=== PATIENT | female | born 1980 | race American Indian/Alaskan Native ===

== ENCOUNTER 2016-06-14 16:36 | Emergency (ER) | payer SELFPAY ==
[2016-06-14 17:13] VITALS: BP 126/85
--- NOTE | 2016-06-14 17:32 | Emergency Department Report ---
Chief Complaint: Abdominal Pain Stated Complaint: ABD PAIN/NAUSEA/WEAKNESS Time Seen by Provider: 06/14/16 17:28 - HPI History of Present Illness: 35-year-old -Polish female comes in complaint of medical abdominal pain 1 week. Denies any discharge or bleeding denies any dysuria. General weakness times one week denies any chest pain and vomiting. SHe has no past medical history takes no medications on a daily basis - Exam Vital Signs: Vital Signs 06/14/16 17:09 Temperature 98.5 F Pulse Rate 76 Respiratory 20 Rate Blood Pressure 126/85 O2 Sat by Pulse 100 Oximetry Physical Exam: Patient is alert and oriented 3 cardiovascular S1-S2 regular rate and rhythm respiratory clear to auscultation bilaterally abdomen soft nontender nondistended bowel sounds throughout. MSE screening note: Focused history and physical exam performed. Due to findings the following was ordered: Patient has been evaluated by this provider and MSE. Dominant protocol ordered patient be evaluated the main ER ED Disposition for MSE Condition: Stable Instructions: Abdominal Pain (ED)
[2016-06-14 19:13] LABS: Basophils % (Auto) 0.5 % (0.0-1.8); Eosinophils % (Auto) 2.9 % (0.0-4.3); Hematocrit 41.1 % (30.3-42.9); Hemoglobin 13.2 gm/dl (10.1-14.3); Mean Corpuscular HGB Conc 32 % (30-34); Mean Corpuscular Hemoglobin 27 pg (28-32); Mean Corpuscular Volume 83 fl (79-97); Platelet Count 329 K/mm3 (140-440); Red Blood Count 4.97 M/mm3 (3.65-5.03); Red Cell Distribution Width 14.4 % (13.2-15.2); White Blood Count 6.6 K/mm3 (4.5-11.0)
[2016-06-14 19:31] LABS: Alanine Aminotransferase 14 units/L (7-56); Albumin 4.1 g/dL (3.9-5); Albumin/Globulin Ratio 1.2 %; Alkaline Phosphatase 118 units/L (35-129); Anion Gap 13 mmol/L; Bilirubin,Total 0.2 mg/dL (0.1-1.2); Blood Urea Nitrogen 6 mg/dL (7-17); Calcium 8.9 mg/dL (8.4-10.2); Carbon Dioxide 26 mmol/L (22-30); Chloride 104.3 mmol/L (98-107); Glucose 103 mg/dL (65-100); Lipase 23 units/L (13-60); Potassium 4.4 mmol/L (3.6-5.0); Sodium 139 mmol/L (137-145); Total Protein 7.6 g/dL (6.3-8.2)
[2016-06-14 20:37] LABS: Bacteria,Urine 1+ /HPF (Negative); Bilirubin,Urine NEG (Negative); Blood,Urine NEG (Negative); Ketones,Urine NEG (Negative); Leukocyte Esterase,Urine SM (Negative); Mucus,Urine FEW /HPF; Nitrite,Urine NEG (Negative); Protein,Urine <15 mg/dL mg/dL (Negative); Urobilinogen,Urine < 2.0 mg/dL (<2.0)
[2016-06-14] MEDS ORDERED: TYLENOL PO ONE (21:11)
[2016-06-14] MEDS ORDERED: ZOFRAN ODT PO ONE (21:11)
[2016-06-14] MEDS ORDERED: BENTYL PO ONE (21:11)
--- NOTE | 2016-06-14 21:30 | Emergency Department Report ---
HPI - General Chief Complaint: Abdominal Pain Time Seen by Provider: 06/14/16 17:28 - HPI HPI: The patient is a 35-year-old female presents for evaluation of abdominal pain. The patient reports onset of abdominal pain for the past one week, periumbilical in location, 8/10 in severity, crampy in quality, improved with defecation, associated with nausea, multiple episodes of nonbilious, nonbloody emesis, and constipation. The patient denies fever, chills, night sweats, blood in the stool, dark tarry stool, dysuria, hematuria, flank pain, genital discharge, vaginal bleeding, inability to pass flatus. ED Past Medical Hx - Past Medical History Previous Medical History?: No - Surgical History Past Surgical History?: No - Social History Smoking Status: Never Smoker Substance Use Type: Alcohol - Medications Home Medications: Home Medications Medication Instructions Recorded Confirmed Last Taken Type Cyclobenzaprine HCl [Flexeril 5 MG 5 mg PO Q8HR PRN #15 tab 06/14/16 Unknown Rx TAB] Ondansetron [Zofran TAB] 4 mg PO Q8HR PRN #15 tablet 06/14/16 Unknown Rx ED Review of Systems ROS: Stated complaint: ABD PAIN/NAUSEA/WEAKNESS Other details as noted in HPI Constitutional: denies: fever ENT: denies: throat or neck pain Respiratory: denies: cough, shortness of breath Cardiovascular: denies: chest pain Endocrine: denies unexplained weight loss or gain Gastrointestinal: reports abdominal pain, nausea Genitourinary: denies: dysuria Musculoskeletal: denies: leg swelling Skin: denies: rash Neurological: denies: headache Hematological/Lymphatic: denies: easy bleeding or easy bruising Psych: denies sadness or hopelessness Physical Exam - Physical Exam Vital Signs: Vital Signs 06/14/16 17:09 Temperature 98.5 F Pulse Rate 76 Respiratory 20 Rate Blood Pressure 126/85 O2 Sat by Pulse 100 Oximetry Physical Exam: General: well-nourished, well-developed, no acute distress Head: Normocephalic, atraumatic Eyes: normal sclera ENT: Mucous membranes are pink and moist Neck: trachea midline, neck supple, No neck stiffness, no cervical adenopathy Respiratory: Breath sounds equal bilaterally, no wheezing, rales, or rhonchi Cardio: S1 and S2 present, no murmurs, rubs, gallops, capillary refill is brisk Abdomen: Normoactive bowel sounds, soft abdomen, periumbilical tenderness to palpation present, no rigidity, no guarding or rebound tenderness Chest WALL/Back: No tenderness to palpation of the chest wall, no CVA tenderness with percussion Musc: No pitting edema Skin: No rash Neuro: no facial drooping, normal speech Psych: Normal affect ED Course Vital Signs 06/14/16 17:09 Temperature 98.5 F Pulse Rate 76 Respiratory 20 Rate Blood Pressure 126/85 O2 Sat by Pulse 100 Oximetry ED Medical Decision Making - Lab Data Result diagrams: 06/14/16 19:03 06/14/16 19:03 - Medical Decision Making The patient was seen and examined by myself. The patient is placed on a child monitor and continuous pulse ox. On initial evaluation, the patient was found to be in no distress. Evaluation orders are placed. The patient given a tablet of Bentyl and Tylenol for pain, and Zofran for nausea. Lab results were non-concerning including WBC, hemoglobin, hematocrit, electrolytes, renal function, LFTs, lipase, urinalysis, and negative test. The patient was reevaluated and reported that their symptoms were markedly improved. The patient is stable for discharge with outpatient follow-up. The patient is given follow-up and return instructions. The patient expressed understanding and agreed with the plan. The patient is discharged in stable condition. Critical care attestation.: If time is entered above; I have spent that time in minutes in the direct care of this critically ill patient, excluding procedure time. ED Disposition Clinical Impression: Abdominal pain, acute, periumbilical, Nausea and vomiting in adult patient Disposition: DISCHARGED TO HOME OR SELFCARE Is pt being admited?: No Does the pt Need Aspirin: No Condition: Stable Instructions: Abdominal Pain (ED), Gastroenteritis (ED) Prescriptions: Cyclobenzaprine HCl [Flexeril 5 MG TAB] 5 mg PO Q8HR PRN #15 tab PRN Reason: Pain Ondansetron [Zofran TAB] 4 mg PO Q8HR PRN #15 tablet PRN Reason: Nausea Referrals: [facility] [Outside] - 3-5 Days Time of Disposition: 21:15
== END 2016-06-14 21:45 | disposition home or self-care (01) ==
LOC: ED 16:36
DX: R10.33 Periumbilical pain (principal); R11.2 Nausea with vomiting, unspecified; K59.00 Constipation, unspecified
CPT/HCPCS: 36415; 80053; 81001; 81025; 83690; 85025; 99284; Q0162

== ENCOUNTER 2016-06-23 13:12 | Emergency (ER) | payer SELFPAY ==
[2016-06-23 14:03] VITALS: BP 129/89
--- NOTE | 2016-06-23 16:47 | Emergency Department Report ---
Entered by MARIE SUAREZ, acting as scribe for ZACKARY WALTERS PA. - General Chief Complaint: Upper Respiratory Infection Stated Complaint: COUGH/EYE INFECTION Time Seen by Provider: 06/23/16 16:20 Source: patient Mode of arrival: Ambulatory Limitations: No Limitations - History of Present Illness Initial Comments: 35 y/o female with no significant PMHx, presents to the ED c/o cough beginning 1 week ago. The patient notes that she has seasonal allergies. Associated symptoms of chills, bilateral eye matting and tearing, throat itching, and headache, but she denies wheezing, SOB, chest pain, nausea, vomiting, abdominal pain, fever, weakness, and numbness. The patient has been taking OTC amrita- seltzer with no alleviation of the symptoms. MD Complaint: cough, other (itchy throat, bilateral eye matting and tearing) -: week(s) (1 week ago) Consistency: constant Improves With: nothing, other (no alleviation with OTC cold medicine) Worsens With: nothing Context: other (patient has seasonal allergies) Associated Symptoms: chills, headache, cough, other (itchy throat, bilateral eye matting and tearing). denies: fever, chest pain, shortness of breath, abdominal pain, nausea, vomiting, diarrhea Treatments Prior to Arrival: "cold medicine" (amrita-seltzer) - Related Data Previous Rx's Medication Instructions Recorded Last Taken Type Cyclobenzaprine HCl [Flexeril 5 MG 5 mg PO Q8HR PRN #15 tab 06/14/16 Unknown Rx TAB] Ondansetron [Zofran TAB] 4 mg PO Q8HR PRN #15 tablet 06/14/16 Unknown Rx Fluticasone [Flonase] 1 spray NS QDAY #1 bottle 06/23/16 Unknown Rx Ketotifen Fumarate [Alaway] 1 drop OP BID #1 bottle 06/23/16 Unknown Rx Loratadine/Pseudoephedrine 1 tab PO DAILY #30 tablet 06/23/16 Unknown Rx [Claritin-D 24Hr] Allergies Allergy/AdvReac Type Severity Reaction Status Date / Time No Known Allergies Allergy Unverified 06/14/16 17:13 ED Review of Systems Comment: All other systems reviewed and negative Constitutional: chills. denies: fever Eyes: other (eye matting and tearing) ENT: other (throat itching) Respiratory: cough. denies: shortness of breath, wheezing Cardiovascular: denies: chest pain Gastrointestinal: denies: abdominal pain, nausea, vomiting, diarrhea Skin: denies: rash Neurological: headache. denies: weakness, numbness ED Past Medical Hx - Past Medical History Previous Medical History?: No - Surgical History Past Surgical History?: No - Social History Smoking Status: Never Smoker Substance Use Type: None - Medications Home Medications: Home Medications Medication Instructions Recorded Confirmed Last Taken Type Cyclobenzaprine HCl [Flexeril 5 MG 5 mg PO Q8HR PRN #15 tab 06/14/16 Unknown Rx TAB] Ondansetron [Zofran TAB] 4 mg PO Q8HR PRN #15 tablet 06/14/16 Unknown Rx Fluticasone [Flonase] 1 spray NS QDAY #1 bottle 06/23/16 Unknown Rx Ketotifen Fumarate [Alaway] 1 drop OP BID #1 bottle 06/23/16 Unknown Rx Loratadine/Pseudoephedrine 1 tab PO DAILY #30 tablet 06/23/16 Unknown Rx [Claritin-D 24Hr] ED Physical Exam - General Limitations: No Limitations - Other Other exam information: GENERAL: Patient is alert and oriented x 3. No apparent distress, normal gait, atraumatic. HEAD: Head is normocephalic and atraumatic. Frontal sinus tenderness to percussion, no maxillary sinus tenderness. EYES: Extraocular movements are intact. Pupils are equal, round, and reactive to light and accommodation. EARS: Symmetrical, atraumatic, non tender, ear canal clear with moderate cerumen , tympanic membrane non inflamed. Gross auditory nml bilaterally. NOSE: Nose symmetrical, nontender. Nares appeared normal. MOUTH:Mouth is well hydrated and without lesions. Mucous membranes are moist. Uvula midline with mild swelling. Tongue not elevated. Posterior pharynx is mildly erythematous, no exudate or lesions. Tonsils are not erythematous or swollen. Patent airway. NECK: Supple. Non edematous, no carotid bruits. No lymphadenopathy or thyromegaly. LUNGS: Symmetrical with respiration. No wheezing, rales or crackles, CTAB. HEART: Regular rate and rhythm with normal S1/S2 present. No murmurs, rubs, or gallops. ABDOMEN: Soft, nondistended. Nontender to palpation on all quadrants. No organomegaly was noted. Positive bowel sounds. No CVA tenderness. EXTREMITIES/MUSCULOSKELETAL: No cyanosis, clubbing, rash, lesions or edema. Full ROM bilaterally. UE/LE Pulses 2+ bilaterally. LE and UE 5+ strength bilaterally SKIN: Warm and dry. No lesions, ulceration or induration present NEUROLOGIC: No focal deficit., ED Course Vital Signs 06/23/16 13:58 Temperature 98.5 F Pulse Rate 78 Respiratory 18 Rate Blood Pressure 129/89 O2 Sat by Pulse 100 Oximetry ED Medical Decision Making - Medical Decision Making Patient was evaluated by the provider in fast track. 35 y/o female presents complaining of cough and bilateral eye matting beginning 1 week ago. Discussed with the patient to follow-up with a PCP as referred, and to return to the ED if symptoms return or worsen. Patient states understanding and will follow instructions. Vital signs stable, patient is in no acute distress. ED Disposition Clinical Impression: Seasonal allergies Qualifiers: Allergic rhinitis trigger: unspecified Qualified Code(s): J30.2 - Other seasonal allergic rhinitis Disposition: DISCHARGED TO HOME OR SELFCARE Is pt being admited?: No Does the pt Need Aspirin: No Condition: Stable Instructions: Allergies (ED) Additional Instructions: Take medication as prescribed. His symptoms persisted continues to get worse. Follow-up to primary care provider. Prescriptions: Fluticasone [Flonase] 1 spray NS QDAY #1 bottle Ketotifen Fumarate [Alaway] 1 drop OP BID #1 bottle Loratadine/Pseudoephedrine [Claritin-D 24Hr] 1 tab PO DAILY #30 tablet Referrals: PRIMARY CARE, [Primary Care Provider] - 3-5 Days Forms: Work/School Release Form(ED) This documentation as recorded by the ERICK harmon GRACE,accurately reflects the service I personally performed and the decisions made by ,ZACKARY WALTERS PA.
== END 2016-06-23 16:53 | disposition home or self-care (01) ==
LOC: ED 13:12
DX: J30.2 Other seasonal allergic rhinitis (principal); H57.8 Other specified disorders of eye and adnexa
CPT/HCPCS: 99282

== ENCOUNTER 2016-10-11 06:31 | Emergency (ER) | payer OTHER ==
[2016-10-11 07:19] LABS: Basophils % (Auto) 0.6 % (0.0-1.8); Eosinophils % (Auto) 3.4 % (0.0-4.3); Hematocrit 38.7 % (30.3-42.9); Hemoglobin 12.6 gm/dl (10.1-14.3); Mean Corpuscular HGB Conc 32 % (30-34); Mean Corpuscular Hemoglobin 26 pg (28-32); Mean Corpuscular Volume 81 fl (79-97); Platelet Count 310 K/mm3 (140-440); Red Cell Distribution Width 14.6 % (13.2-15.2); White Blood Count 6.3 K/mm3 (4.5-11.0)
[2016-10-11 07:39] LABS: Bilirubin,Urine NEG (Negative); Blood,Urine NEG (Negative); Ketones,Urine NEG (Negative); Leukocyte Esterase,Urine NEG (Negative); Mucus,Urine FEW /HPF; Nitrite,Urine NEG (Negative); Protein,Urine <15 mg/dL mg/dL (Negative); Urobilinogen,Urine < 2.0 mg/dL (<2.0)
[2016-10-11 07:40] LABS: Alanine Aminotransferase 11 units/L (7-56); Albumin 3.8 g/dL (3.9-5); Albumin/Globulin Ratio 1.1 %; Alkaline Phosphatase 100 units/L (35-129); Anion Gap 15 mmol/L; BUN/Creatinine Ratio 6.25; Blood Urea Nitrogen 5 mg/dL (7-17); Calcium 8.8 mg/dL (8.4-10.2); Carbon Dioxide 26 mmol/L (22-30); Chloride 104.2 mmol/L (98-107); Glucose 93 mg/dL (65-100); Lipase 19 units/L (13-60); Potassium 4.1 mmol/L (3.6-5.0); Sodium 141 mmol/L (137-145); Total Protein 7.3 g/dL (6.3-8.2)
--- NOTE | 2016-10-11 10:10 | Emergency Department Report ---
HPI - General Chief Complaint: Nausea/Vomiting/Diarrhea Time Seen by Provider: 10/11/16 09:42 - HPI HPI: This is a 36 year-old female who drove herself and be seen today with the complaint of a 2 week history of intermittent "upset stomach." It is associated with some nausea without vomiting. She denies any diarrhea, constipation, fever, back pain, dysuria, vaginal bleeding or discharge. She has not taken anything for her symptoms prior presentation. She does not have any past medical history. No recent travel or sick contacts on. She does not have a primary care physician. ED Past Medical Hx - Past Medical History Previous Medical History?: No - Surgical History Past Surgical History?: No - Social History Smoking Status: Never Smoker Substance Use Type: Marijuana - Medications Home Medications: Home Medications Medication Instructions Recorded Confirmed Last Taken Type Cyclobenzaprine HCl [Flexeril 5 MG 5 mg PO Q8HR PRN #15 tab 06/14/16 Unknown Rx TAB] Ondansetron [Zofran TAB] 4 mg PO Q8HR PRN #15 tablet 06/14/16 Unknown Rx Fluticasone [Flonase] 1 spray NS QDAY #1 bottle 06/23/16 Unknown Rx Ketotifen Fumarate [Alaway] 1 drop OP BID #1 bottle 06/23/16 Unknown Rx Loratadine/Pseudoephedrine 1 tab PO DAILY #30 tablet 06/23/16 Unknown Rx [Claritin-D 24Hr] Ondansetron [Zofran Odt] 4 mg PO Q8HR PRN #10 tab.rapdis 10/11/16 Unknown Rx ED Review of Systems ROS: Stated complaint: NAUSEA/ABD PAIN Other details as noted in HPI Comment: All other systems reviewed and negative Constitutional: denies: chills, fever Eyes: denies: eye pain, eye discharge, vision change ENT: denies: ear pain, throat pain Respiratory: denies: cough, shortness of breath, wheezing Cardiovascular: denies: chest pain, palpitations Gastrointestinal: abdominal pain, nausea. denies: vomiting Genitourinary: denies: urgency, dysuria, discharge Musculoskeletal: denies: back pain, joint swelling, arthralgia Skin: denies: rash, lesions Neurological: denies: headache, weakness, paresthesias Physical Exam - Physical Exam Vital Signs: Vital Signs 10/11/16 06:50 Temperature 98.2 F Pulse Rate 73 Respiratory 14 Rate Blood Pressure 127/86 [Right] O2 Sat by Pulse 100 Oximetry Physical Exam: GENERAL: The patient is well-developed well-nourished. HEENT: Normocephalic. Atraumatic. Extraocular motions are intact. Patient has moist mucous membranes. Pupils equal reactive to light bilaterally. NECK: Supple. Trachea is midline. CHEST/LUNGS: Clear to auscultation. There is no respiratory distress noted. HEART/CARDIOVASCULAR: Regular. There is no tachycardia. There is no gallop rub or murmur. ABDOMEN: Abdomen is soft, nontender. Patient has normal bowel sounds. There is no abdominal distention. SKIN: Skin is warm and dry. NEURO: The patient is awake, alert, and oriented. The patient is cooperative. The patient has no focal neurologic deficits. The patient has normal speech. MUSCULOSKELETAL: There is no tenderness or deformity. There is no limitation range of motion. There is no evidence of acute injury. ED Course Vital Signs 10/11/16 06:50 Temperature 98.2 F Pulse Rate 73 Respiratory 14 Rate Blood Pressure 127/86 [Right] O2 Sat by Pulse 100 Oximetry ED Medical Decision Making - Lab Data Result diagrams: 10/11/16 07:08 10/11/16 07:08 - Radiology Data Radiology results: image reviewed interpreted by me: Abdominal x-ray shows nonspecific nonobstructive bowel gas. - Medical Decision Making 36-year-old female presents to the emergency department with intermittent abdominal discomfort over the past 2 weeks as well as some nausea without vomiting. Vital signs stable throughout ED course. Labs are unremarkable. Patient does not have any current symptoms. Abdominal shows shows nonspecific not objective bowel gas. Could be gas pains. It could be dietary related. However the patient does not appear to be in any acute distress and does not require admission. She was given referrals for primary care and gastroenterology. She will return to the ER with any worsening of symptoms or any acute distress. Critical Care Time: No Critical care attestation.: If time is entered above; I have spent that time in minutes in the direct care of this critically ill patient, excluding procedure time. ED Disposition Clinical Impression: Intermittent abdominal pain Disposition: DC-01 TO HOME OR SELFCARE Is pt being admited?: No Condition: Stable Instructions: Acute Nausea and Vomiting (ED), Abdominal Pain (ED) Additional Instructions: Please follow up with a primary care physician in the next few days. I have given him a referral for a local customer specialist, Dr. Morse, to follow up regarding your intermittent abdominal pains. Return to the emergency Department with any worsening of her symptoms or any acute distress. Prescriptions: Ondansetron [Zofran Odt] 4 mg PO Q8HR PRN #10 tab.rapdis PRN Reason: Nausea Referrals: PRIMARY CARE, [Primary Care Provider] - 3-5 Days PETERSON MORSE MD [Staff Physician] - 3-5 Days GINA CASTANEDA JR, MD [Staff Physician] - 3-5 Days [facility] [Outside] - 3-5 Days Forms: Work/School Release Form(ED)
[2016-10-11 10:19] VITALS: BP 116/74
--- NOTE | 2016-10-11 10:20 | XRay Report ---
ABDOMEN TWO VIEWS: 10/11/16 09:46:00 CLINICAL: Abdominal pain. COMPARISON:None. FINDINGS: Supine upright views demonstrate a normal bowel gas pattern. Moderate stool throughout the colon. No distended small bowel and no air-fluid levels. No mass or suspicious calcifications. The bones and soft tissues are normal. IMPRESSION: Negative abdomen.
== END 2016-10-11 10:44 | disposition home or self-care (01) ==
LOC: ED 06:31
DX: R10.9 Unspecified abdominal pain (principal); F12.90 Cannabis use, unspecified, uncomplicated
CPT/HCPCS: 36415; 74020; 80053; 81001; 83690; 84703; 85025

== ENCOUNTER 2017-11-28 22:10 | Emergency (ER) | payer SELFPAY ==
[2017-11-28 22:29] VITALS: BP 139/91
[2017-11-28] MEDS ORDERED: MOTRIN ONE (22:40)
[2017-11-28] MEDS ORDERED: MOTRIN PO ONE (22:48)
[2017-11-28 23:03] LABS: HCG Qualitative,Urine Negative (Negative)
--- NOTE | 2017-11-28 23:47 | XRay Report ---
FINAL REPORT EXAM: XR SPINE LUMBOSACRAL 2-3V HISTORY: back pain TECHNIQUE: Frontal and lateral views lumbar spine Comparison: None FINDINGS: Bony alignment is normal. The vertebral heights and disc spaces are maintained. There is no evidence of fracture or subluxation. The paraspinous soft tissues are unremarkable. IMPRESSION: 1. No plain film evidence of bony or soft tissue abnormality. If the patient remains symptomatic and if further imaging is required, MRI may be helpful.
[2017-11-29] MEDS ORDERED: TORADOL IM ONE (02:52)
--- NOTE | 2017-11-29 02:57 | Emergency Department Report ---
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 right low back pain radiating to right thigh 3 days patient denies fall or trauma Bibiana her back twisting lifting as required perform job duties there is no numbness no tingling and paralysis loss of bowel or bladder function pain described as 5/10 aching and burning sensation to right thigh MD Complaint: back pain, back injury Onset/Timin -: days(s) Similar Symptoms Previously: No Place: work Radiation: right leg Severity: moderate Severity scale (0 -10): 5 Quality: burning, aching Consistency: constant Improves With: none Worsens With: movement Context: while lifting, turning/twisting Associated Symptoms: denies: numbness, difficulty urinating, incontinence, fever /chills - Related Data Previous Rx's Medication Instructions Recorded Last Taken Type Cyclobenzaprine HCl [Flexeril 5 MG 5 mg PO Q8HR PRN #15 tab 06/14/16 Unknown Rx TAB] Ondansetron [Zofran TAB] 4 mg PO Q8HR PRN #15 tablet 06/14/16 Unknown Rx Fluticasone [Flonase] 1 spray NS QDAY #1 bottle 06/23/16 Unknown Rx Ketotifen Fumarate [Alaway] 1 drop OP BID #1 bottle 06/23/16 Unknown Rx Loratadine/Pseudoephedrine 1 tab PO DAILY #30 tablet 06/23/16 Unknown Rx [Claritin-D 24Hr] Ondansetron [Zofran Odt] 4 mg PO Q8HR PRN #10 tab.rapdis 10/11/16 Unknown Rx Cyclobenzaprine [Flexeril] 10 mg PO TID PRN #30 tablet 11/29/17 Unknown Rx Naproxen [Naprosyn] 500 mg PO BID PRN #30 tablet 11/29/17 Unknown Rx Allergies Allergy/AdvReac Type Severity Reaction Status Date / Time shrimp Allergy Hives Verified 10/11/16 07:08 bread Allergy Hives Uncoded 10/11/16 07:08 ED Review of Systems ROS: Stated complaint: BACK/LEG PAIN Other details as noted in HPI Constitutional: denies: chills, fever Eyes: denies: eye pain, eye discharge, vision change ENT: denies: ear pain, throat pain Respiratory: denies: cough, shortness of breath, wheezing Cardiovascular: denies: chest pain, palpitations Endocrine: no symptoms reported Gastrointestinal: denies: abdominal pain, nausea, diarrhea Genitourinary: denies: urgency, dysuria, discharge Musculoskeletal: back pain, myalgia. denies: joint swelling, arthralgia Skin: denies: rash, lesions Neurological: denies: headache, weakness, paresthesias Psychiatric: denies: anxiety, depression Hematological/Lymphatic: denies: easy bleeding, easy bruising ED Past Medical Hx - Past Medical History Previous Medical History?: No - Surgical History Past Surgical History?: No - Social History Smoking Status: Current Some Day Smoker Substance Use Type: None - Medications Home Medications: Home Medications Medication Instructions Recorded Confirmed Last Taken Type Cyclobenzaprine HCl [Flexeril 5 MG 5 mg PO Q8HR PRN #15 tab 06/14/16 Unknown Rx TAB] Ondansetron [Zofran TAB] 4 mg PO Q8HR PRN #15 tablet 06/14/16 Unknown Rx Fluticasone [Flonase] 1 spray NS QDAY #1 bottle 06/23/16 Unknown Rx Ketotifen Fumarate [Alaway] 1 drop OP BID #1 bottle 06/23/16 Unknown Rx Loratadine/Pseudoephedrine 1 tab PO DAILY #30 tablet 06/23/16 Unknown Rx [Claritin-D 24Hr] Ondansetron [Zofran Odt] 4 mg PO Q8HR PRN #10 tab.rapdis 10/11/16 Unknown Rx Cyclobenzaprine [Flexeril] 10 mg PO TID PRN #30 tablet 11/29/17 Unknown Rx Naproxen [Naprosyn] 500 mg PO BID PRN #30 tablet 11/29/17 Unknown Rx ED Physical Exam - General Limitations: No Limitations General appearance: alert, in no apparent distress - Head Head exam: Present: atraumatic, normocephalic - Eye Eye exam: Present: normal appearance - ENT ENT exam: Present: mucous membranes moist - Neck Neck exam: Present: normal inspection, full ROM. Absent: lymphadenopathy, thyromegaly - Respiratory Respiratory exam: Present: normal lung sounds bilaterally. Absent: respiratory distress, wheezes, stridor - Cardiovascular Cardiovascular Exam: Present: regular rate, normal rhythm. Absent: systolic murmur, diastolic murmur, rubs, gallop - GI/Abdominal GI/Abdominal exam: Present: soft, normal bowel sounds. Absent: tenderness, bruit, hernia - Rectal Rectal exam: Present: deferred - Extremities Exam Extremities exam: Present: normal inspection, full ROM, normal capillary refill. Absent: tenderness, pedal edema, joint swelling, calf tenderness - Back Exam Back exam: Present: tenderness (bilat lumbar reging ), muscle spasm, paraspinal tenderness. Absent: CVA tenderness (R), CVA tenderness (L), vertebral tenderness, rash noted - Expanded Back Exam Expanded Back exam: Absent: saddle anesthesia Back exam: Sciatic Notch Tenderness: Right, Positive Straight Leg Raise: Right, Negative Straight Leg Raising: Left - Neurological Exam Neurological exam: Present: alert, oriented X3, CN II-XII intact, normal gait, reflexes normal - Psychiatric Psychiatric exam: Present: normal affect, normal mood - Skin Skin exam: Present: warm, dry, intact, normal color. Absent: rash ED Course Vital Signs 11/28/17 22:24 Temperature 98.8 F Pulse Rate 72 Respiratory 16 Rate Blood Pressure 139/91 O2 Sat by Pulse 100 Oximetry ED Medical Decision Making - Lab Data Laboratory Tests 11/28/17 Unknown Urine HCG, Qual Negative - Radiology Data Radiology results: report reviewed, image reviewed no fracture no soft tissue deformity - Medical Decision Making This is a low back strain with sciatica right lower extremity however patient is to steady there is no weakness no paresthesia mild straight leg right plan and says muscle relaxers low back exercises patient will follow with PCP in 2-3 days Critical care attestation.: If time is entered above; I have spent that time in minutes in the direct care of this critically ill patient, excluding procedure time. ED Disposition Clinical Impression: Lumbar spine strain Qualifiers: Encounter type: initial encounter Qualified Code(s): S39.012A - Strain of muscle, fascia and tendon of lower back, initial encounter Disposition: TO HOME OR SELFCARE Is pt being admited?: No Does the pt Need Aspirin: No Condition: Good Instructions: Low Back Strain (ED), Core Strengthening Exercises (GEN) Prescriptions: Cyclobenzaprine [Flexeril] 10 mg PO TID PRN #30 tablet PRN Reason: Muscle Spasm Naproxen [Naprosyn] 500 mg PO BID PRN #30 tablet PRN Reason: pain Referrals: [facility] [Outside] - 3-5 Days Forms: Work/School Release Form(ED) Time of Disposition: 03:07
== END 2017-11-29 03:10 | disposition home or self-care (01) ==
LOC: ED 22:10
DX: S39.012A Strain of muscle, fascia and tendon of lower back, initial encounter (principal); F17.200 Nicotine dependence, unspecified, uncomplicated; Z91.013 Allergy to seafood; Z91.018 Allergy to other foods; X50.9XXA Other and unspecified overexertion or strenuous movements or postures, initial encounter; Y93.89 Activity, other specified; Y92.69 Other specified industrial and construction area as the place of occurrence of the external cause; Y99.8 Other external cause status
CPT/HCPCS: 72100; 81025; 96372; 99283; J1885

== ENCOUNTER 2019-04-26 09:38 | Emergency (ER) | payer SELFPAY ==
[2019-04-26 09:56] VITALS: BP 138/68
--- NOTE | 2019-04-26 13:00 | XRay Report ---
CHEST 2 VIEWS INDICATION: cough. COMPARISON: None FINDINGS: Support devices: None. Heart: Within normal limits. Lungs/pleura: No acute air space or interstitial disease. No pneumothorax. Additional findings: None. IMPRESSION: No acute findings. Signer Name: Pedro Rascon Jr, MD Signed: 04/26/2019 12:56 PM Workstation Name: [id number]
--- NOTE | 2019-04-26 13:21 | Emergency Department Report ---
Upper Respiratory HPI - HPI Chief Complaint: Upper Respiratory Infection Stated Complaint: COUGHING Time Seen by Provider: 04/26/19 12:20 URI Symptoms: Rhinorrhea: Yes, Sore Throat: No, Ear Pain: No, Cough: Yes, Shortness of Breath: No, Sick Contacts: No, Unable to Take Fluids: No, Urine Output Abnormal: No, Listless Behavior: No Other History: This is a 38-year-old female nontoxic, well nourished in appearance, no acute signs of distress presents to the ED with c/o of nonproductive cough, rhinorrhea, nasal congestion x2 weeks. Patient denies any sick contacts. Patient denies any recent travels, long car, recent hospital stays. Patient denies any calf pain or calf tenderness. Patient denies any chest pain, short of breath, fever, chills, nausea, vomiting, hemoptysis, numbness, tingling, headache or stiff neck. Patient stated allergies to shirmp but denies any significant PMH. - Home Meds and Allergies Home Medications: Previous Rx's Medication Instructions Recorded Last Taken Type Cyclobenzaprine HCl [Flexeril 5 MG 5 mg PO Q8HR PRN #15 tab 06/14/16 Unknown Rx TAB] Ondansetron [Zofran TAB] 4 mg PO Q8HR PRN #15 tablet 06/14/16 Unknown Rx Fluticasone [Flonase] 1 spray NS QDAY #1 bottle 06/23/16 Unknown Rx Ketotifen Fumarate [Alaway] 1 drop OP BID #1 bottle 06/23/16 Unknown Rx Loratadine/Pseudoephedrine 1 tab PO DAILY #30 tablet 06/23/16 Unknown Rx [Claritin-D 24Hr] Ondansetron [Zofran Odt] 4 mg PO Q8HR PRN #10 tab.rapdis 10/11/16 Unknown Rx Cyclobenzaprine [Flexeril] 10 mg PO TID PRN #30 tablet 11/29/17 Unknown Rx Naproxen [Naprosyn] 500 mg PO BID PRN #30 tablet 11/29/17 Unknown Rx Benzonatate [Tessalon Perles] 100 mg PO Q8HR PRN #20 capsule 04/26/19 Unknown Rx Allergies/Adverse Reactions: Allergies Allergy/AdvReac Type Severity Reaction Status Date / Time shrimp Allergy Hives Verified 10/11/16 07:08 bread Allergy Hives Uncoded 10/11/16 07:08 ED Review of Systems ROS: Stated complaint: COUGHING Other details as noted in HPI Constitutional: denies: chills, fever Eyes: denies: eye pain, eye discharge, vision change ENT: congestion. denies: ear pain, throat pain Respiratory: cough. denies: shortness of breath, wheezing Cardiovascular: denies: chest pain, palpitations Endocrine: no symptoms reported Gastrointestinal: denies: abdominal pain, nausea, diarrhea Genitourinary: denies: urgency, dysuria, discharge Musculoskeletal: denies: back pain, joint swelling, arthralgia Skin: denies: rash, lesions Neurological: denies: headache, weakness, paresthesias Psychiatric: denies: anxiety, depression Hematological/Lymphatic: denies: easy bleeding, easy bruising ED Past Medical Hx - Past Medical History Previous Medical History?: No - Surgical History Past Surgical History?: No - Social History Smoking Status: Never Smoker Substance Use Type: None - Medications Home Medications: Home Medications Medication Instructions Recorded Confirmed Last Taken Type Cyclobenzaprine HCl [Flexeril 5 MG 5 mg PO Q8HR PRN #15 tab 06/14/16 Unknown Rx TAB] Ondansetron [Zofran TAB] 4 mg PO Q8HR PRN #15 tablet 06/14/16 Unknown Rx Fluticasone [Flonase] 1 spray NS QDAY #1 bottle 06/23/16 Unknown Rx Ketotifen Fumarate [Alaway] 1 drop OP BID #1 bottle 06/23/16 Unknown Rx Loratadine/Pseudoephedrine 1 tab PO DAILY #30 tablet 06/23/16 Unknown Rx [Claritin-D 24Hr] Ondansetron [Zofran Odt] 4 mg PO Q8HR PRN #10 tab.rapdis 10/11/16 Unknown Rx Cyclobenzaprine [Flexeril] 10 mg PO TID PRN #30 tablet 11/29/17 Unknown Rx Naproxen [Naprosyn] 500 mg PO BID PRN #30 tablet 11/29/17 Unknown Rx Benzonatate [Tessalon Perles] 100 mg PO Q8HR PRN #20 capsule 04/26/19 Unknown Rx ED Bronchiolitis Physical Exam - Exam General: Vital signs noted. No distress. Alert and acting appropriately. Neurologic: Alert and oriented, no deficits. Musculoskeletal: Unremarkable. ED Bronchiolitis Tests - Testing Testing: CXR: Normal/Negative ED Physical Exam - General Limitations: No Limitations General appearance: alert, in no apparent distress - Head Head exam: Present: atraumatic, normocephalic - Eye Eye exam: Present: normal appearance - ENT ENT exam: Present: normal exam, normal orophraynx - Neck Neck exam: Present: normal inspection, full ROM. Absent: tenderness, meningismus, lymphadenopathy - Respiratory Respiratory exam: Present: normal lung sounds bilaterally. Absent: respiratory distress, wheezes, rales, rhonchi, stridor, chest wall tenderness, accessory muscle use, decreased breath sounds, prolonged expiratory - Cardiovascular Cardiovascular Exam: Present: regular rate, normal rhythm, normal heart sounds. Absent: bradycardia, tachycardia, irregular rhythm, systolic murmur, diastolic murmur, rubs, gallop - Extremities Exam Extremities exam: Present: normal inspection, full ROM - Back Exam Back exam: Present: normal inspection, full ROM - Neurological Exam Neurological exam: Present: alert, oriented X3, normal gait - Psychiatric Psychiatric exam: Present: normal affect, normal mood - Skin Skin exam: Present: warm, dry, intact, normal color. Absent: rash ED Course Vital Signs 04/26/19 09:53 Temperature 98.4 F Pulse Rate 73 Respiratory 18 Rate Blood Pressure 138/68 O2 Sat by Pulse 98 Oximetry - Reevaluation(s) Reevaluation #1: 04/26/19 13:22 Patient is speaking in full sentences with no signs of distress noted. ED Medical Decision Making - Medical Decision Making This is a 38-year-old female that presents with viral bronchitis. Patient is stable and was examined by me. Chest x-ray has been obtained and dictated by radiologist with normal exam. Patient is notified of x-ray results with no questions noted. Patient was instructed to increase hydration, rest and take Motrin for fever episodes. Patient received motrin and tesslone perrls in the ED. Vitals stable. Patient is nonfebrile and normal heart rate. Patient was instructed Follow-up with a primary care doctor in 3-5 days or if symptoms worsen and continue return to emergency room as soon as possible. At time time of discharge, the patient does not seem toxic or ill in appearance. No acute signs of distress noted. Patient agrees to discharge treatment plan of care. No further questions noted by the patient. Critical care attestation.: If time is entered above; I have spent that time in minutes in the direct care of this critically ill patient, excluding procedure time. ED Disposition Clinical Impression: Viral bronchitis Disposition: DC-01 TO HOME OR SELFCARE Is pt being admited?: No Does the pt Need Aspirin: No Condition: Stable Instructions: Acute Bronchitis (ED) Additional Instructions: Follow-up with a primary care doctor in 3-5 days or if symptoms worsen and continue return to emergency room as soon as possible. Prescriptions: Benzonatate [Tessalon Perles] 100 mg PO Q8HR PRN #20 capsule PRN Reason: Cough Referrals: PRIMARY CAREMD [Primary Care Provider] - 3-5 Days IFRAH HUYNH MD [Staff Physician] - 3-5 Days [facility] [Outside] - 3-5 Days Forms: Work/School Release Form(ED)
== END 2019-04-26 13:42 | disposition home or self-care (01) ==
LOC: ED 09:38
DX: J20.8 Acute bronchitis due to other specified organisms (principal); Z79.899 Other long term (current) drug therapy
CPT/HCPCS: 71046

== ENCOUNTER 2020-01-29 21:28 | Emergency (ER) | payer MEDICAID ==
[2020-01-29 22:34] VITALS: BP 110/80
[2020-01-30 16:34] LABS: BUN/Creatinine Ratio 9
[2020-01-30 16:42] LABS: Basophils % (Auto) 0.2 % (0.0-1.8); Eosinophils % (Auto) 0.1 % (0.0-4.3); Hematocrit 40.2 % (30.3-42.9); Lymphocytes # (Auto) 1.4 K/mm3 (1.2-5.4); Lymphocytes % (Auto) 12.5 % (13.4-35.0); Mean Corpuscular HGB Conc 32 % (30-34); Mean Corpuscular Volume 84 fl (79-97); Monocytes # (Auto) 0.9 K/mm3 (0.0-0.8); Platelet Count 349 K/mm3 (140-440); Red Blood Count 4.78 M/mm3 (3.65-5.03); Red Cell Distribution Width 13.9 % (13.2-15.2)
[2020-01-30 19:10] LABS: Alanine Aminotransferase 11 units/L (7-56); Albumin 4.1 g/dL (3.9-5); Blood Urea Nitrogen 7 mg/dL (7-17); Calcium 9.1 mg/dL (8.4-10.2)
== END 2020-01-30 05:30 | disposition home or self-care (01) ==
LOC: ED 21:28
DX: T78.1XXA Other adverse food reactions, not elsewhere classified, initial encounter (principal); K21.9 Gastro-esophageal reflux disease without esophagitis; X58.XXXA Exposure to other specified factors, initial encounter
CPT/HCPCS: 36415; 80053; 85025; 99283